=== PATIENT | female | born 1985 | race American Indian/Alaskan Native ===

== ENCOUNTER 2016-12-06 19:24 | Emergency (ER) | payer MEDICAID, OTHER ==
[2016-12-06 19:46] VITALS: RESP 16; TEMP 98.4; O2SAT 100
--- NOTE | 2016-12-06 20:11 | ED PDOC ---
HPI: General Adult Time Seen by Provider: 12/06/16 20:00 Chief Complaint (Nursing): GI Problem Chief Complaint (Provider): rectal bleeding History Per: Patient History/Exam Limitations: no limitations Onset/Duration Of Symptoms: Other (one episode) Current Symptoms Are (Timing): Gone Now Additional History Per: Patient Additional Complaint(s): 31 y/o female presents for eval of one episode of rectal bleeding this morning. Patient states this morning she urinated then strained to have a bowel movement and then noted a moderate amount of bright red blood in the toilet. Patient states when she looked in the rectal area she noticed a lump, and notes a history of hemorrhoids as a child. Patient notes rectal discomfort since then , without further bleeding episodes. Patient not positive where blood came from , but thinks she could be . Denies fever, nausea/vomiting, chest pain, abdominal/pelvic pain, vaginal discharge, dysuria, hematuria. Past Medical History Reviewed: Historical Data, Nursing Documentation, Vital Signs Vital Signs: Last Vital Signs Temp 98.4 F 12/06/16 19:41 Pulse 93 H 12/06/16 19:41 Resp 16 12/06/16 19:41 BP 153/83 H 12/06/16 19:41 Pulse Ox 100 12/07/16 00:29 - Medical History PMH: Anemia (during ), HTN (during ) Denies: HIV, Chronic Kidney Disease - Surgical History Surgical History: No Surg Hx - Family History Family History: States: Unknown Family Hx - Living Arrangements Living Arrangements: With Family - Immunization History Hx Tetanus Toxoid Vaccination: No - Home Medications Home Medications: Ambulatory Orders Medication Instructions Recorded Acetaminophen/Codeine 7.5 ml PO Q6 PRN #210 ml 05/29/16 [Tylenol/Codeine elixir] Lidocaine 2% Viscous 15 ml PO Q4 PRN #630 ml 05/29/16 Sulfamethoxazole/Trimethoprim 1 tab PO Q12 #20 tab 05/29/16 [Bactrim DS Tab] - Allergies Allergies/Adverse Reactions: Allergies Allergy/AdvReac Type Severity Reaction Status Date / Time No Known Allergies Allergy Verified 05/26/16 22:46 Review of Systems ROS Statement: Except As Marked, All Systems Reviewed And Found Negative Gastrointestinal: Positive for: Hematochezia, Rectal Pain Physical Exam - Reviewed Nursing Documentation Reviewed: Yes Vital Signs Reviewed: Yes - Physical Exam Appears: Positive for: Well, Non-toxic, No Acute Distress Head Exam: Positive for: ATRAUMATIC, NORMAL INSPECTION, NORMOCEPHALIC Skin: Positive for: Normal Color Eye Exam: Positive for: Normal appearance ENT: Positive for: Normal ENT Inspection Cardiovascular/Chest: Positive for: Regular Rate, Rhythm Respiratory: Positive for: Normal Breath Sounds Gastrointestinal/Abdominal: Positive for: Normal Exam, Bowel Sounds, Soft, Tenderness (mild suprapubic discomfort) Pelvic Exam: Positive for: External Exam Normal, Speculum Exam Normal, No Cerv. Motion Tender, Other (exam chaperoned by Cara groundwater monitoring technician). Negative for: Active Bleeding, Blood, Cervicitis Back: Positive for: Normal Inspection Rectal: Positive for: Hemorrhoids (soft, nontender, nonthrombosed), Other (exam chaperoned by Sandy Reyes RN). Negative for: Blood Streaked Stool Extremity: Positive for: Normal ROM Neurologic/Psych: Positive for: Alert, Oriented - Laboratory Results Result Diagrams: 12/06/16 20:39 12/06/16 20:39 Urine POC: Positive Urine dip results: Negative for: Leukocyte Esterase, Blood, Nitrate, Ketones - ECG O2 Sat by Pulse Oximetry: 100 - Progress ED Course And Treament: labs, urine Patient with + ; u/s ordered EXAM: US Uterus, Limited CLINICAL HISTORY: 31 years old, female; Signs and symptoms; Lmp or gestational age (in weeks): Unknown; Other: Spotting; ; Additional info: , bleeding TECHNIQUE: Real-time ultrasound of the maternal uterus (limited) with image documentation. COMPARISON: No relevant prior studies available. FINDINGS: A single intrauterine gestation is identified with a crown rump length measuring 5.5 cm, corresponding to an approximate gestational age of 12 weeks and 0 days. cardiac activity is identified at a rate of 162 beats per minute. The cervix measures 3.8 cm, and is closed. The bilateral ovaries are unremarkable in echogenicity and size. The right ovary measures 3.0 x 1.8 x 2.4 cm. The left ovary measures 2.1 x 1.0 x 2.0 cm. No free fluid is identified on the submitted images. IMPRESSION: Single intrauterine gestation with an approximate gestational age of 12 weeks and 0 days. cardiac activity is identified. The cervix measures 3.8 cm, and is closed. Patient educated on all findings, states she has a Learning Engineer she can follow up with. Advised vitamins. Advised follow up PMD 2-3 days. High fiber diet. Stool softeners PRN. Return to ED for worsening/concerning symptoms. Disposition - Clinical Impression Clinical Impression: Anemia, Hemorrhoid, Rectal bleeding, - Patient ED Disposition Is Patient to be Admitted: No Counseled Patient/Family Regarding: Studies Performed, Diagnosis, Need For Followup - Disposition Disposition: Routine/Home Disposition Time: 00:19 Condition: GOOD Instructions: (ED), Hemorrhoids (ED), Rectal Bleeding (ED), Anemia ( ED)
[2016-12-06 20:45] LABS: BASO % 0.5 % (0.0-2.0); EOS # 0.1 K/uL (0.0-0.7); EOS % 1.5 % (0.0-4.0); HEMOGLOBIN 9.7 g/dL (12.0-16.0); LYMPH # 2.4 K/uL (1.0-4.3); LYMPH % 24.8 % (20.0-40.0); MEAN CELL VOLUME 67.3 fl (81.0-99.0); MEAN CORPUSCULAR HEMOGLOBIN 21.4 pg (27.0-31.0); MEAN CORPUSCULAR HGB CONC 31.8 g/dL (33.0-37.0); MEAN PLATELET VOLUME 8.4 fl (7.2-11.7); MONO # 0.7 K/uL (0.0-0.8); MONO % 7.4 % (0.0-10.0); NEUT # 6.4 K/uL (1.8-7.0); NEUT % 65.8 % (50.0-75.0); RBC 4.51 Mil/uL (3.80-5.20); RED CELL DISTRIBUTION WIDTH 16.6 % (11.5-14.5); WHITE BLOOD COUNT 9.8 K/uL (4.8-10.8)
[2016-12-06 20:54] LABS: ALB/GLOB RATIO 1.3 (1.0-2.1); ALBUMIN 3.8 g/dL (3.5-5.0); ALT/SGPT 22 U/L (9-52); AST/SGOT 18 U/L (14-36); BLOOD UREA NITROGEN 9 mg/dl (7-17); CALCIUM 9.2 mg/dL (8.4-10.2); GFR AFRICAN-AMERICAN > 60; GFR NON-AFRICAN AMERICAN > 60
--- NOTE | 2016-12-07 00:04 | US ---
EXAM: US Uterus, Limited CLINICAL HISTORY: 31 years old, female; Signs and symptoms; Lmp or gestational age (in weeks): Unknown; Other: Spotting; ; Additional info: , bleeding TECHNIQUE: Real-time ultrasound of the maternal uterus (limited) with image documentation. COMPARISON: No relevant prior studies available. FINDINGS: A single intrauterine gestation is identified with a crown rump length measuring 5.5 cm, corresponding to an approximate gestational age of 12 weeks and 0 days. cardiac activity is identified at a rate of 162 beats per minute. The cervix measures 3.8 cm, and is closed. The bilateral ovaries are unremarkable in echogenicity and size. The right ovary measures 3.0 x 1.8 x 2.4 cm. The left ovary measures 2.1 x 1.0 x 2.0 cm. No free fluid is identified on the submitted images. IMPRESSION: Single intrauterine gestation with an approximate gestational age of 12 weeks and 0 days. cardiac activity is identified. The cervix measures 3.8 cm, and is closed.
[2016-12-07 00:30] VITALS: BP 134/68; PULSE 88
== END 2016-12-07 00:30 | disposition home or self-care (01) ==
LOC: H.ER 19:24
DX: K64.9 Unspecified hemorrhoids (principal); O99.011 Anemia complicating pregnancy, first trimester

== ENCOUNTER 2017-01-04 17:53 | Emergency (ER) | payer OTHER ==
[2017-01-04 18:03] VITALS: BP 150/77; PULSE 101; RESP 16; TEMP 98; O2SAT 100
[2017-01-04] MEDS ORDERED: Sodium Chloride 0.9% 1,000 ML IV STA (18:15)
--- NOTE | 2017-01-04 18:17 | ED PDOC ---
HPI: Back Time Seen by Provider: 01/04/17 18:06 Chief Complaint (Nursing): Back Pain Chief Complaint (Provider): Back pain History Per: Patient History/Exam Limitations: no limitations Onset/Duration Of Symptoms: Days (Yesterday) Current Symptoms Are (Timing): Still Present Additional Complaint(s): R flank pain ongoing off and on. No dysuria, abd pain, nausea, vomit. diarrhea , weakness, headaches. No changes with food. Did not take meds for it. No fever. Past Medical History Reviewed: Nursing Documentation, Vital Signs Vital Signs: Last Vital Signs Temp 98.0 F 01/04/17 18:00 Pulse 101 H 01/04/17 18:00 Resp 16 01/04/17 18:00 BP 150/77 01/04/17 18:00 Pulse Ox 100 01/04/17 18:00 - Medical History PMH: Anemia (during ), HTN Denies: HIV, Chronic Kidney Disease - Family History Family History: States: Unknown Family Hx Other Family History: kidney stones - Social History Current smoker - smoking cessation education provided: No Alcohol: None Drugs: Denies - Immunization History Hx Tetanus Toxoid Vaccination: No - Home Medications Home Medications: Ambulatory Orders Medication Instructions Recorded Acetaminophen/Codeine 7.5 ml PO Q6 PRN #210 ml 05/29/16 [Tylenol/Codeine elixir] Lidocaine 2% Viscous 15 ml PO Q4 PRN #630 ml 05/29/16 Sulfamethoxazole/Trimethoprim 1 tab PO Q12 #20 tab 05/29/16 [Bactrim DS Tab] - Allergies Allergies/Adverse Reactions: Allergies Allergy/AdvReac Type Severity Reaction Status Date / Time No Known Allergies Allergy Verified 01/04/17 17:59 Review of Systems ROS Statement: Except As Marked, All Systems Reviewed And Found Negative Musculoskeletal: Positive for: Back Pain Physical Exam - Reviewed Nursing Documentation Reviewed: Yes Vital Signs Reviewed: Yes - Physical Exam Appears: Positive for: Non-toxic, No Acute Distress Head Exam: Positive for: ATRAUMATIC, NORMAL INSPECTION, NORMOCEPHALIC Skin: Positive for: Normal Color, Warm, DRY Eye Exam: Positive for: EOMI, Normal appearance, PERRL ENT: Positive for: Normal ENT Inspection Neck: Positive for: Normal, Painless ROM Cardiovascular/Chest: Positive for: Regular Rate, Rhythm Respiratory: Positive for: CNT, Normal Breath Sounds Gastrointestinal/Abdominal: Positive for: Bowel Sounds, Soft, Tenderness (RLQ and R mid abd) Back: Positive for: Normal Inspection, R CVA Tenderness. Negative for: L CVA Tenderness Extremity: Positive for: Normal ROM. Negative for: Tenderness, Pedal Edema Neurologic/Psych: Positive for: Alert, Oriented - ECG O2 Sat by Pulse Oximetry: 100 Pulse Ox Interpretation: Normal - Progress ED Course And Treament: 1836: Stable. AAOx3. Dr. Bruce to fu on labs and imaging. Disposition - Clinical Impression Clinical Impression: Back pain - Patient ED Disposition Is Patient to be Admitted: Transfer of Care - Disposition Disposition Time: 18:00 Condition: STABLE Patient Signed Over To: Elizabeth Bruce
[2017-01-04 18:34] LABS: BASO # 0.1 K/uL (0.0-0.2); BASO % 1.1 % (0.0-2.0); EOS # 0.3 K/uL (0.0-0.7); EOS % 3.7 % (0.0-4.0); HEMATOCRIT 35.6 % (34.0-47.0); LYMPH # 3.4 K/uL (1.0-4.3); LYMPH % 41.3 % (20.0-40.0); MEAN CELL VOLUME 68.3 fl (81.0-99.0); MEAN CORPUSCULAR HGB CONC 30.8 g/dL (33.0-37.0); MEAN PLATELET VOLUME 8.7 fl (7.2-11.7); MONO # 0.7 K/uL (0.0-0.8); MONO % 9.1 % (0.0-10.0); NEUT # 3.7 K/uL (1.8-7.0); NEUT % 44.8 % (50.0-75.0); NRBC % 0.1 % (0.0-0.0); WHITE BLOOD COUNT 8.2 K/uL (4.8-10.8)
[2017-01-04 18:57] LABS: ALB/GLOB RATIO 1.3 (1.0-2.1); ALKALINE PHOSPHATASE 65 U/L (38-126); ALT/SGPT 24 U/L (9-52); AST/SGOT 40 U/L (14-36); BILIRUBIN,TOTAL 0.9 mg/dl (0.2-1.3); BLOOD UREA NITROGEN 9 mg/dl (7-17); CALCIUM 9.5 mg/dL (8.4-10.2); CARBON DIOXIDE 23 mmol/L (22-30); CHLORIDE 105 mmol/L (98-107); GFR AFRICAN-AMERICAN > 60; GLUCOSE,RANDOM 81 mg/dL (65-105); LIPASE 42 U/L (23-300); SODIUM 138 mmol/l (132-148); TOTAL PROTEIN 7.9 G/DL (6.3-8.2)
[2017-01-04 18:58] LABS: POTASSIUM 5.2 MMOL/L (3.6-5.0)
--- NOTE | 2017-01-04 19:15 | ED PDOC ---
- Laboratory Results Result Diagrams: 01/04/17 18:27 01/04/17 18:27 - ECG O2 Sat by Pulse Oximetry: 100 (RA) Pulse Ox Interpretation: Normal Medical Decision Making Medical Decision Making: Time: 1899 --Patient was signed off to provider by Dr. Yassine Casarez. Pending CT and bloodwork results. Time: 2029 --CT ABD/Pelvis FINDINGS: Lower thorax: Heart size is normal. There is a small hiatal hernia. Lung bases are clear ABDOMEN: Liver: unremarkable Gallbladder and bile ducts: unremarkable Pancreas: unremarkable Spleen: unremarkable Adrenals: unremarkable Kidneys and ureters: There are no renal or ureteral stones. Stomach and bowel: Stomach is incompletely distended. There is minimal radiopaque material in the stomach. Rotation is normal. There is no obstruction. Cecum is low in the pelvis. Appendix and terminal ileum are unremarkable.There is moderate stool throughout the colon. Appendix: See stomach and bowel PELVIS: Bladder: Bladder is almost completely empty. Reproductive: Uterus and adnexal structures are unremarkable. ABDOMEN and PELVIS: Intraperitoneal space: There is no free air. There is minimal free fluid in the pelvis. Bones/joints: There are no acute osseous abnormalities Soft tissues: There is a small fat containing umbilical hernia. Vasculature: There are calcified phleboliths. Vascular structures are unremarkable. Lymph nodes: There is shotty adenopathy. IMPRESSION: No renal or ureteral stones or hydronephrosis; no CT findings of appendicitis; minimal fluid in the pelvis, physiologic versus recent cyst rupture. Time: 2137 --US transvag FINDINGS: Uterus: Uterus measures approximately 8.3 x 4.4 x 6.6 cm. In endometrium measures approximately 6 mm in width. There is a small amount of fluid in the endometrial canal. Right ovary: Right ovary measures approximately 3.9 x 2.5 x 3.3 cm There is a 1.82 x 1.98 x 1.73 cm corpus luteum in the right ovary. There are small follicles. There is expected blood flow on Doppler imaging Left ovary: Left ovary measures approximate 5.08 x 2.64 x 2.64 cm.There are multiple small follicles.There is expected blood flow on Doppler imaging. There is a 2.1 x 2.1 x 1.5 cm corpus luteum in the left ovary. Free fluid: There is trace free fluid Bladder: Bladder is empty IMPRESSION: Minimal fluid in the endometrial canal; corpus lutea in both ovaries , no torsion. Scribe Attestation: Documented by Cata Pike, acting as a scribe for Elizabeth Bruce MD. Provider Scribe Attestation: All medical record entries made by the Scribe were at my direction and personally dictated by me. I have reviewed the chart and agree that the record accurately reflects my personal performance of the history, physical exam, medical decision making, and the department course for this patient. I have also personally directed, reviewed, and agree with the discharge instructions and disposition. Disposition Counseled Patient/Family Regarding: Studies Performed, Diagnosis - Clinical Impression Clinical Impression: Back pain, Abdominal pain, Ovarian cyst - POA Present On Arrival: None - Disposition Referrals: [facility] [Outside] Disposition: Routine/Home Disposition Time: 20:45 Condition: GOOD Additional Instructions: Take motrin for pain. Follow up with your PCP in 2-3 days. Instructions: Ovarian Cyst (ED)
--- NOTE | 2017-01-04 20:30 | CT ---
EXAM: CT Abdomen and Pelvis Without Intravenous Contrast EXAM DATE/TIME: 01/04/2017 6:15 PM CLINICAL HISTORY: 31 years old, female; Pain; Abdominal pain; Flank; Right; Additional info: R/O stone TECHNIQUE: Axial computed tomography images of the abdomen and pelvis without intravenous contrast. All CT scans at this facility use one or more dose reduction techniques, viz.: automated exposure control; ma/kV adjustment per patient size (including targeted exams where dose is matched to indication; i.e. head); or iterative reconstruction technique. Coronal and sagittal reformatted images were created and reviewed. COMPARISON: US - OB , LIMITED 12/06/2016 10:31:07 PM FINDINGS: Lower thorax: Heart size is normal. There is a small hiatal hernia. Lung bases are clear ABDOMEN: Liver: unremarkable Gallbladder and bile ducts: unremarkable Pancreas: unremarkable Spleen: unremarkable Adrenals: unremarkable Kidneys and ureters: There are no renal or ureteral stones. Stomach and bowel: Stomach is incompletely distended. There is minimal radiopaque material in the stomach. Rotation is normal. There is no obstruction. Cecum is low in the pelvis. Appendix and terminal ileum are unremarkable.There is moderate stool throughout the colon. Appendix: See stomach and bowel PELVIS: Bladder: Bladder is almost completely empty. Reproductive: Uterus and adnexal structures are unremarkable. ABDOMEN and PELVIS: Intraperitoneal space: There is no free air. There is minimal free fluid in the pelvis. Bones/joints: There are no acute osseous abnormalities Soft tissues: There is a small fat containing umbilical hernia. Vasculature: There are calcified phleboliths. Vascular structures are unremarkable. Lymph nodes: There is shotty adenopathy. IMPRESSION: No renal or ureteral stones or hydronephrosis; no CT findings of appendicitis; minimal fluid in the pelvis, physiologic versus recent cyst rupture
--- NOTE | 2017-01-04 21:38 | US ---
EXAM: US Pelvis, Transvaginal EXAM DATE/TIME: 01/04/2017 8:36 PM CLINICAL HISTORY: 31 years old, female; Pain; Abdominal pain; Right lower quadrant; Prior surgery; Surgery date: <1 month; Surgery type: on 12/08/2016; Additional info: Rlq pain right flank pain TECHNIQUE: Real-time transvaginal pelvic ultrasound (complete) with image documentation. Transvaginal imaging was used for better evaluation of the endometrium and adnexa. COMPARISON: CT - ABD PELVIS W/O PO OR IV CONT 01/04/2017 7:42:20 PM FINDINGS: Uterus: Uterus measures approximately 8.3 x 4.4 x 6.6 cm. In endometrium measures approximately 6 mm in width. There is a small amount of fluid in the endometrial canal. Right ovary: Right ovary measures approximately 3.9 x 2.5 x 3.3 cm There is a 1.82 x 1.98 x 1.73 cm corpus luteum in the right ovary. There are small follicles. There is expected blood flow on Doppler imaging Left ovary: Left ovary measures approximate 5.08 x 2.64 x 2.64 cm.There are multiple small follicles.There is expected blood flow on Doppler imaging. There is a 2.1 x 2.1 x 1.5 cm corpus luteum in the left ovary. Free fluid: There is trace free fluid Bladder: Bladder is empty IMPRESSION: Minimal fluid in the endometrial canal; corpus lutea in both ovaries, no torsion
== END 2017-01-04 23:57 | disposition home or self-care (01) ==
LOC: H.ER 17:53
DX: M54.9 Dorsalgia, unspecified (principal); N83.201 Unspecified ovarian cyst, right side; R10.9 Unspecified abdominal pain; I10 Essential (primary) hypertension
CPT/HCPCS: 74176; 76830; 80053; 81025; 83690; 85025; 96374; 96376; 99283; J1885; J7040